=== PATIENT | female | born 1955 | race Two or more races ===

== ENCOUNTER 2019-06-21 10:13 | Emergency (ER) | payer OTHER ==
[~2019-06-21] VITALS: Ht 170.2 cm; Wt 94.8 kg
--- NOTE | 2019-06-21 10:18 | NUR ---
BIB RELATIVE C/O CHEST PAIN RADIATES TO L ARM AND HEADACHE STARTED LAST NIGHT AROUND 0930H , TO ER BED 8, HOOKED TO LOCKER ATTENDANT AND POX, CHANGEDT O HOSP GOWN, AWAITING MD PERRIN.
--- NOTE | 2019-06-21 10:25 | NUR ---
DR BAILON AT BEDSIDE
[2019-06-21] MEDS ORDERED: PRED20TA PO (10:33)
[2019-06-21] MEDS ORDERED: MELO-105 PO (10:33)
[2019-06-21] MEDS ORDERED: FOLI0.8T PO (10:33)
[2019-06-21] MEDS ORDERED: LOSA25TA27 PO (10:33)
[2019-06-21] MEDS ORDERED: METH2.5T PO (10:33)
[2019-06-21] MEDS ORDERED: PANT40TA2 PO (10:33)
[2019-06-21 10:51] LABS: BASOPHILS % (AUTO) 1.2 % (0.0-2.0); EOSINOPHILS % (AUTO) 3.3 % (0.0-6.0); HEMATOCRIT 42 % (33-45); HEMOGLOBIN 13.9 g/dL (11.5-14.8); LYMPHOCYTES # (AUTO) 0.7 /CMM (0.8-4.8); MEAN CORPUSCULAR HGB CONC 33 g/dl (31.0-36.0); MEAN CORPUSCULAR VOLUME 90 fL (82-100); MONOCYTES # (AUTO) 0.2 /CMM (0.1-1.30); MONOCYTES % (AUTO) 7.8 % (2.0-12.0); NEUTROPHILS # (AUTO) 2.1 /CMM (1.8-8.9); NEUTROPHILS % (AUTO) 66.7 % (43.0-81.0); PLATELET COUNT (AUTO) 189 /CMM (150-450); RED BLOOD CELL COUNT(AUTO) 4.68 MIL/uL (4.0-5.2); WHITE BLOOD COUNT (AUTO) 3.1 K/uL (4.3-11.0)
[2019-06-21 10:58] LABS: CALCIUM, SERUM 8.8 mg/dL (8.5-10.1); CARBON DIOXIDE 31 mmol/L (21-32); CHLORIDE 106 mmol/L (98-107); CREATININE 0.9 mg/dL (0.6-1.3); GLUCOSE 112 mg/dL (74-106); POTASSIUM 3.4 mmol/L (3.5-5.1); SODIUM SERUM 142 mmol/L (136-145); UREA NITROGEN, BLOOD 13 mg/dL (7-18)
[2019-06-21] MEDS ORDERED: diphenhydrAMINE HCL 50 MG/ML VIAL ONE (14:24)
[2019-06-21] MEDS ORDERED: METOCLOPRAMIDE HCL 10 MG/2 ML VIAL ONE (14:24)
[2019-06-21] MEDS ORDERED: ACETAMINOPHEN 325 MG TABLET ONE (14:24)
[2019-06-21] MEDS ORDERED: METOCLOPRAMIDE HCL 10 MG/2 ML VIAL IV ONE (14:30)
[2019-06-21] MEDS ORDERED: ACETAMINOPHEN 325 MG TABLET PO ONE (14:30)
[2019-06-21] MEDS ORDERED: diphenhydrAMINE HCL 50 MG/ML VIAL IV ONE (14:30)
--- NOTE | 2019-06-21 15:33 | NUR ---
IV removed. Catheter intact and site benign. Pressure and 4x4 applied to site. No bleeding noted.Patient discharged to home in stable condition. Written and verbal after care instructions given. Patient verbalizes understanding of instruction.
[2019-06-21 15:36] VITALS: BP 121/70
== END 2019-06-21 15:36 | disposition home or self-care (01) ==
LOC: ER 10:13
DX: R07.89 Other chest pain (principal); R51 Headache; F41.9 Anxiety disorder, unspecified; E87.6 Hypokalemia; I10 Essential (primary) hypertension; I25.10 Atherosclerotic heart disease of native coronary artery without angina pectoris; M06.9 Rheumatoid arthritis, unspecified; Z95.818 Presence of other cardiac implants and grafts; Z88.5 Allergy status to narcotic agent; Z88.1 Allergy status to other antibiotic agents; Z79.899 Other long term (current) drug therapy
CPT/HCPCS: 36415; 71045; 80048; 84484 ×2; 85025; 93005 ×2; 96374; 96375; 99285; J1200; J2765; J7030

== ENCOUNTER 2019-09-19 14:37 | Emergency (ER) | payer OTHER ==
[~2019-09-19] VITALS: Ht 170.2 cm; Wt 90.7 kg
[~2019-09-19 14:37] MED LIST: FOLI0.8T PO; LOSA25TA27 PO; MELO-105 PO; METH2.5T PO; PANT40TA2 PO; PRED20TA PO
[2019-09-19] MEDS ORDERED: METOCLOPRAMIDE HCL 10 MG/2 ML VIAL IV ONE (15:00)
[2019-09-19] MEDS ORDERED: SUMATRIPTAN SUCCINATE 6 MG/0.5 ML VIAL SQ ONE (15:00)
[2019-09-19] MEDS ORDERED: IV NS 0.9% 1,000 ML BAG IV ONE (15:00)
[2019-09-19] MEDS ORDERED: diphenhydrAMINE HCL 50 MG/ML VIAL IV ONE (15:00)
[2019-09-19 15:24] LABS: BASOPHILS # (AUTO) 0.1 /CMM (0.0-0.2); EOSINOPHILS % (AUTO) 3.9 % (0.0-6.0); HEMATOCRIT 40 % (33-45); HEMOGLOBIN 13.4 g/dL (11.5-14.8); LYMPHOCYTES # (AUTO) 0.8 /CMM (0.8-4.8); LYMPHOCYTES % (AUTO) 18.8 % (20.0-44.0); MEAN CORPUSCULAR HGB CONC 34 g/dl (31.0-36.0); MEAN CORPUSCULAR VOLUME 90 fL (82-100); MONOCYTES # (AUTO) 0.4 /CMM (0.1-1.30); MONOCYTES % (AUTO) 10.3 % (2.0-12.0); NEUTROPHILS # (AUTO) 2.7 /CMM (1.8-8.9); PLATELET COUNT (AUTO) 186 /CMM (150-450); RED BLOOD CELL COUNT(AUTO) 4.44 MIL/uL (4.0-5.2); WHITE BLOOD COUNT (AUTO) 4.2 K/uL (4.3-11.0)
[2019-09-19 15:33] LABS: CALCIUM, SERUM 8.9 mg/dL (8.5-10.1); CREATININE 0.9 mg/dL (0.6-1.3); POTASSIUM 3.6 mmol/L (3.5-5.1)
--- NOTE | 2019-09-19 15:35 | NUR ---
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 PT AAOX4, VSS. RR EVEN & UNLABORED. DENIES CP, SOB, N/V AT THIS TIME. PT SEEN & EVAL'D BY DR. LAZO. MEDICATED PER ERMD ORDER. PT WILL CONT TO MONITOR.
--- NOTE | 2019-09-19 15:36 | NUR ---
PT TO CT VIA [facility].
--- NOTE | 2019-09-19 15:49 | NUR ---
PT BACK FROM CT IN RM 6. PT STABLE, NAD NOTED AT THIS TIME.
[2019-09-19 17:46] VITALS: BP 140/82
--- NOTE | 2019-09-19 17:46 | NUR ---
Patient discharged to home in stable condition. Written and verbal after care instructions given. Patient verbalizes understanding of instruction. IV removed. Catheter intact and site benign. Pressure and 4x4 applied to site. No bleeding noted.
== END 2019-09-19 17:47 | disposition home or self-care (01) ==
LOC: ER 14:40
DX: R42 Dizziness and giddiness (principal); G43.909 Migraine, unspecified, not intractable, without status migrainosus; I10 Essential (primary) hypertension; M06.9 Rheumatoid arthritis, unspecified; Z88.5 Allergy status to narcotic agent; Z88.1 Allergy status to other antibiotic agents; Z79.899 Other long term (current) drug therapy
CPT/HCPCS: 36415; 70450; 80048; 85025; 96361; 96372; 96374; 96375; 99284; J1200; J2765; J3030; J7030

== ENCOUNTER 2022-08-31 10:50 | Outpatient (CLI) | payer MEDICARE, OTHER ==
[~2022-08-31 10:50] MED LIST changes: -FOLI0.8T PO; +FOLI0.8T3 PO
== END 2022-08-31 23:59 | disposition home or self-care (01) ==
LOC: WOU 10:50
PROVIDERS: ATTEND Podiatrist Foot & Ankle Surgery
DX: S92.314A Nondisplaced fracture of first metatarsal bone, right foot, initial encounter for closed fracture (principal); X58.XXXA Exposure to other specified factors, initial encounter; Y92.89 Other specified places as the place of occurrence of the external cause; R60.0 Localized edema; M79.671 Pain in right foot
CPT/HCPCS: G0463